=== PATIENT | male | born 1940 | race Caucasian/White ===

== ENCOUNTER 2019-03-12 07:08 | Emergency (ER) | payer OTHER ==
[~2019-03-12] VITALS: Ht 188 cm; Wt 100.2 kg
[2019-03-12 07:38] LABS: HEMATOCRIT 42.7 % (42.0-52.0); HEMOGLOBIN 14.2 gm/dL (14.0-18.0); MCH 29.3 pg (26.0-34.0); MCHC 33.2 g/dL (28.0-37.0); MCV 88.1 fL (80.0-100.0); RBC 4.85 mil/uL (4.50-6.00); RDW 13.4 % (10.5-14.5)
[2019-03-12 07:42] LABS: ANION GAP 9 mmol/L (7-16); BUN 8 mg/dL (7-18); CALCIUM 8.6 mg/dL (8.5-10.1); CHLORIDE 106 mmol/L (98-107); CO2 26 mmol/L (21-32); CREATININE 0.9 mg/dL (0.7-1.3); GLUCOSE 96 mg/dL (74-106); SODIUM 141 mmol/L (136-145)
[2019-03-12 07:52] LABS: TROPONIN-I <0.06 ng/mL (<0.06)
--- NOTE | 2019-03-12 08:18 | EKG ---
[facility] [place] [address] ELECTROCARDIOGRAM REPORT Name: AVELINO TURNER Room #: [facility]#: [id number] ������������������ Admission: 03/12/19 ������������������ Attend Phys: Discharge: ������������������ Date of : 44 Report #: [id number] ����������������������������������������������������������������� [id number] THIS REPORT FOR: //name// [facility] ED Test Date: 2019-03-12 Test Time: 07:09:36 Pat Name: AVELINO TURNER Department: Room: Gender: In Home Tutor: : 1940 Requested By: Johnna Joiner Order Number: [id number] MD: Edmond Rausch Measurements Intervals [place] Rate: 73 P: 85 TN: 177 QRS: 40 QRSD: 99 T: 60 QT: 408 QTc: 450 Interpretive Statements Sinus rhythm Frequent premature ventricular complexes Poor R wave progression No previous ECGs available for comparison Electronically Signed On 03-12-2019 8:18:16 CDT by Edmond Rausch [email or web address] ��������������������������������������������� <ELECTRONICALLY SIGNED> ���������������������������������������� By: Edmond Rausch MD, [facility] ��������������������������������������������� 03/12/19 0818 [id number] 8 Edmond Rausch MD, FACC /EPI
[2019-03-12 08:50] LABS: URINE BILIRUBIN NEGATIVE (Negative); URINE BLOOD NEGATIVE (Negative); URINE CLARITY CLEAR; URINE COLOR YELLOW; URINE GLUCOSE-RANDOM* NEGATIVE (Negative); URINE KETONES NEGATIVE (Negative); URINE LEUKOCYTES-REFLEX TRACE (Negative); URINE NITRITE-REFLEX NEGATIVE (Negative); URINE PROTEIN (DIPSTICK) NEGATIVE (Negative); URINE SPECIFIC GRAVITY <= 1.005 (1.005-1.035); URINE UROBILINOGEN 0.2 E.U./dl (0.2-1.0)
[2019-03-12] MEDS ORDERED: ANTIVERT25 MG PO (09:37)
[2019-03-12 09:56] VITALS: BP 220/97
== END 2019-03-12 09:57 | disposition home or self-care (01) ==
LOC: ER 07:08
PROVIDERS: Emergency Medicine
DX: I10 Essential (primary) hypertension (principal); Z98.890 Other specified postprocedural states; Z86.19 Personal history of other infectious and parasitic diseases; Z88.2 Allergy status to sulfonamides

== ENCOUNTER 2019-04-15 12:57 | Emergency (ER) | payer OTHER ==
[~2019-04-15] VITALS: Ht 188 cm; Wt 99.8 kg
[~2019-04-15 12:57] MED LIST: ANTIVERT25 MG PO
[2019-04-15] MEDS ORDERED: GABAPENTIN 100100 MG PO (13:34)
[2019-04-15] MEDS ORDERED: PROTONIX40 M1 PO (13:34)
[2019-04-15 13:35] VITALS: BP 164/87
== END 2019-04-15 13:50 | disposition home or self-care (01) ==
LOC: ER 12:57
DX: R13.10 Dysphagia, unspecified (principal); Z90.49 Acquired absence of other specified parts of digestive tract; Z85.810 Personal history of malignant neoplasm of tongue; Z88.2 Allergy status to sulfonamides

== ENCOUNTER 2019-08-24 12:40 | Emergency (ER) | payer OTHER ==
[~2019-08-24] VITALS: Ht 188 cm; Wt 104.3 kg
[~2019-08-24 12:40] MED LIST changes: +GABAPENTIN 100100 MG PO; +PROTONIX40 M1 PO
[2019-08-24] MEDS ORDERED: ASA81BEC PO (12:48)
[2019-08-24] MEDS ORDERED: ROSUVASTATIN CA10 MG PO (12:49)
[2019-08-24 12:58] LABS: ABSOLUTE NEUTROPHILS 3.6 thou/uL (1.4-8.2); BASOPHILS 1.4 % (0.0-2.0); EOSINOPHILS 6.8 % (0.0-3.0); HEMOGLOBIN 12.1 gm/dL (14.0-18.0); LYMPHOCYTES 7.8 % (24.0-44.0); MCH 28.8 pg (26.0-34.0); MCHC 32.7 g/dL (28.0-37.0); MCV 88.1 fL (80.0-100.0); MONOCYTES 8.8 % (1.0-8.0); PLATELET COUNT 205 thou/uL (150-400); POLYS 75.2 % (36.0-66.0); RDW 14.4 % (10.5-14.5); WBC 4.8 thou/uL (4.0-11.0)
[2019-08-24 13:06] LABS: ANION GAP 5 mmol/L (7-16); BUN 8 mg/dL (7-18); CHLORIDE 102 mmol/L (98-107); CO2 29 mmol/L (21-32); GLUCOSE 115 mg/dL (74-106); POTASSIUM 4.5 mmol/L (3.5-5.1); SODIUM 136 mmol/L (136-145)
[2019-08-24 13:16] LABS: ALBUMIN 3.4 g/dL (3.4-5.0); LIPASE 101 U/L (73-393); SGOT 17 U/L (15-37); SGPT 19 U/L (30-65); TOTAL BILIRUBIN 0.9 mg/dL (<0.1-1.0); TOTAL PROTEIN 6.9 g/dL (6.4-8.2); TROPONIN-I <0.06 ng/mL (<0.06)
[2019-08-24 14:29] LABS: URINE BILIRUBIN NEGATIVE (Negative); URINE BLOOD NEGATIVE (Negative); URINE COLOR YELLOW; URINE GLUCOSE-RANDOM* NEGATIVE (Negative); URINE KETONES NEGATIVE (Negative); URINE LEUKOCYTES-REFLEX NEGATIVE (Negative); URINE NITRITE-REFLEX NEGATIVE (Negative); URINE PROTEIN (DIPSTICK) NEGATIVE (Negative); URINE UROBILINOGEN 0.2 E.U./dl (0.2-1.0)
[2019-08-24 14:30] LABS: URINE CLARITY HAZY
[2019-08-24 14:45] VITALS: BP 133/78
--- NOTE | 2019-08-27 15:52 | EKG ---
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 Balance Wheel: GRECIA : 1940 Requested By: Erinn Snyder Order Number: [id number] MD: Misbah Rueda Measurements Intervals [place] Rate: 72 P: 46 [place]: 195 QRS: 93 QRSD: 112 T: 139 QT: 406 QTc: 445 Interpretive Statements Sinus rhythm Ventricular premature complex Nonspecific T abnormalities, lateral leads Compared to ECG 03/12/2019 07:09:36 Electronically Signed On 08-27-2019 15:52:18 [employer] by Misbah Rueda [email or web address] <ELECTRONICALLY SIGNED> By: Misbah Rueda MD 08/27/19 1552 1248 [id number] Misbah Rueda MD /CHELITA
== END 2019-08-24 14:46 | disposition home or self-care (01) ==
LOC: ER 12:40
PROVIDERS: Nurse Practitioner Family
DX: R00.1 Bradycardia, unspecified (principal); Z90.49 Acquired absence of other specified parts of digestive tract; Z88.2 Allergy status to sulfonamides

== ENCOUNTER 2020-11-06 03:09 | Emergency (ER) | payer OTHER ==
[~2020-11-06] VITALS: Ht 188 cm; Wt 93.0 kg
[~2020-11-06 03:09] MED LIST changes: +ASA81BEC PO; +ROSUVASTATIN CA10 MG PO
[2020-11-06] MEDS ORDERED: CARVEDILOL12.5 MG PO (03:23)
[2020-11-06] MEDS ORDERED: LEVOTHYROXINE50 MCG PO (03:23)
[2020-11-06] MEDS ORDERED: RISPERDAL 3 MG T3 M1 PO (03:23)
[2020-11-06] MEDS ORDERED: KEFLEX500 M1 PO (04:38)
[2020-11-06 08:14] VITALS: BP 151/83
== END 2020-11-06 08:58 ==
LOC: ER 03:09
DX: S51.811A Laceration without foreign body of right forearm, initial encounter (principal); Z79.82 Long term (current) use of aspirin; Z79.899 Other long term (current) drug therapy; Z88.2 Allergy status to sulfonamides; W01.190A Fall on same level from slipping, tripping and stumbling with subsequent striking against furniture, initial encounter; Y93.89 Activity, other specified; Y92.89 Other specified places as the place of occurrence of the external cause; Y99.8 Other external cause status

== ENCOUNTER 2020-11-12 07:15 | Emergency (ER) | payer OTHER ==
[~2020-11-12] VITALS: Ht 188 cm; Wt 91.6 kg
[~2020-11-12 07:15] MED LIST changes: +CARVEDILOL12.5 MG PO; +KEFLEX500 M1 PO; +LEVOTHYROXINE50 MCG PO; +RISPERDAL 3 MG T3 M1 PO
[2020-11-12 07:47] VITALS: BP 158/75
== END 2020-11-12 07:45 ==
LOC: ER 07:15
DX: S41.111D Laceration without foreign body of right upper arm, subsequent encounter (principal); Z79.899 Other long term (current) drug therapy; Z79.82 Long term (current) use of aspirin; Z88.2 Allergy status to sulfonamides; W18.39XD Other fall on same level, subsequent encounter

== ENCOUNTER 2020-11-21 11:28 | Emergency (ER) | payer OTHER ==
[~2020-11-21] VITALS: Ht 188 cm; Wt 92.1 kg
[2020-11-21 11:42] VITALS: BP 165/79
== END 2020-11-21 13:10 | disposition home or self-care (01) ==
LOC: ER 11:28
DX: S51.811D Laceration without foreign body of right forearm, subsequent encounter (principal); Z88.2 Allergy status to sulfonamides; Z79.899 Other long term (current) drug therapy; Z79.82 Long term (current) use of aspirin; W18.30XD Fall on same level, unspecified, subsequent encounter